=== PATIENT | female | born 1930 | race African-American/Black ===

== ENCOUNTER 2018-05-20 11:08 | Inpatient (IN) | payer MEDICARE, MEDICAID, OTHER ==
[~2018-05-20] VITALS: Ht 165.1 cm; Wt 100.2 kg
[~2018-05-20 11:08] MED LIST: ATEN-42 PO; CELE200C PO; METO-539 PO
[2018-05-20] MEDS ORDERED: ONDANSETRON HCL 4MG/2ML INJ IV STA (11:36)
[2018-05-20] MEDS ORDERED: FAMOTIDINE 20MG/2ML VIAL IV STA (11:36)
[2018-05-20] MEDS ORDERED: SODIUM CHLORIDE 0.9% 1,000 ML IV ONE ×2 (11:36→18:00)
[2018-05-20 12:36] LABS: BASOPHILS % 0.7 % (0.0-2.0); EOSINOPHILS % 5.2 % (0.0-5.0); HEMATOCRIT. 34.9 % (36.0-48.0); HEMOGLOBIN. 11.5 g/dL (12.0-16.0); MEAN CORPUSCULAR HEMOGLOBIN 31.1 pg (28.0-32.0); MEAN CORPUSCULAR VOLUME 94.5 fL (81.0-99.0); MEAN PLATELET VOLUME 7.5 fl (7.4-10.4); MONOCYTES % 5.8 % (2.0-8.0); NEUTROPHILS % 62.3 % (40.0-76.0); PLATELET 286 x1000/uL (130-400); RED BLOOD CELL COUNT 3.69 mill/uL (4.2-5.4); RED CELL DISTRIBUTION WIDTH 13.1 % (11.6-14.6)
[2018-05-20 12:38] LABS: CLARITY URINE TURBID (CLEAR); COLOR URINE YELLOW (YELLOW); KETONES URINE NEGATIVE (NEGATIVE); LEUKOCYTE ESTERASE URINE 3+ (NEGATIVE); NITRITE URINE NEGATIVE (NEGATIVE); OCCULT BLOOD URINE 3+ (NEGATIVE); PROTEIN URINE 2+ (NEGATIVE); SPECIFIC GRAVITY URINE 1.016 (1.005-1.030); UROBILINOGEN URINE 0.2 E.U./dL (0.2-1.0)
[2018-05-20 12:42] LABS: CHLORIDE 104 mEq/L (98-107)
[2018-05-20 12:43] LABS: PROTHROMBIN TIME 10.5 sec (9.1-11.1)
[2018-05-20] MEDS ORDERED: ASPIRIN 81MG TABLET PO ONE (13:15)
[2018-05-20] MEDS ORDERED: ONDANSETRON HCL 4MG/2ML INJ IV ONE (13:30)
[2018-05-20] MEDS ORDERED: CEFTRIAXONE 1 G PREMIX 50 ML IV ONE (14:00)
[2018-05-20] MEDS ORDERED: SODIUM CHLORIDE 0.9% 1,000 ML IV SCH (15:00)
[2018-05-20 16:21] VITALS: BP 120/56
[2018-05-20 16:56] VITALS: BP 125/72
[2018-05-20] MEDS ORDERED: ATENOLOL 50 MG TABLET PO SCH (18:00)
[2018-05-20] MEDS ORDERED: FAMOTIDINE 20MG TABLET PO SCH (18:00)
[2018-05-20] MEDS: DEXT 5%/0.45% NACL 1000ML 1,000 ML IV SCH (18:55)
[2018-05-20] MEDS: ENOXAPARIN 40MG/0.4ML SYR SUBCUT SCH (18:55)
[2018-05-20] MEDS ORDERED: HYDRALAZINE 20MG/ML VIAL IV PRN (19:15)
[2018-05-20] MEDS ORDERED: ONDANSETRON HCL 4MG/2ML INJ IV PRN (19:15)
[2018-05-20] MEDS ORDERED: MORPHINE SULFATE 2 MG/ML CPJ (NOT FOR IM USE) IV PRN (19:15)
[2018-05-20] MEDS ORDERED: MORPHINE SULFATE 4 MG/ML CPJ (NOT FOR IM USE) IV PRN (19:30)
[2018-05-20 20:00] VITALS: BP 110/56
[2018-05-20] MEDS: ATENOLOL 50 MG TABLET PO SCH (21:38)
[2018-05-21] MEDS: DEXT 5%/0.45% NACL 1000ML 1,000 ML IV SCH ×3 (03:25→18:30)
[2018-05-21 04:00] VITALS: BP 121/90
[2018-05-21 08:00] VITALS: BP 122/62
[2018-05-21] MEDS: PANTOPRAZOLE SODIUM 40 MG/VIAL IV SCH (08:37)
[2018-05-21] MEDS: ATENOLOL 50 MG TABLET PO SCH ×3 (08:37→21:54)
[2018-05-21] MEDS: ASPIRIN 81MG TABLET PO SCH (08:38)
[2018-05-21 12:00] VITALS: BP 127/43
[2018-05-21] MEDS ORDERED: LACTULOSE 20G/30ML UDC PO NR (12:30)
[2018-05-21] MEDS: CEFTRIAXONE 1 G PREMIX 50 ML IV SCH (13:35)
[2018-05-21 16:00] VITALS: BP 119/69
[2018-05-21] MEDS: ENOXAPARIN 40MG/0.4ML SYR SUBCUT SCH (18:00)
[2018-05-21 20:00] VITALS: BP 159/52
[2018-05-22] VITALS: BP 117/55
[2018-05-22] MEDS: DEXT 5%/0.45% NACL 1000ML 1,000 ML IV SCH ×3 (02:30→18:30)
[2018-05-22 04:00] VITALS: BP 136/59
[2018-05-22] MEDS: ATENOLOL 50 MG TABLET PO SCH ×2 (09:00→21:00)
[2018-05-22] MEDS: PANTOPRAZOLE SODIUM 40 MG/VIAL IV SCH (09:00)
[2018-05-22] MEDS: ASPIRIN 81MG TABLET PO SCH (09:00)
[2018-05-22] MEDS: CEFTRIAXONE 1 G PREMIX 50 ML IV SCH (14:00)
[2018-05-22] MEDS: ENOXAPARIN 40MG/0.4ML SYR SUBCUT SCH (18:00)
[2018-05-22] MEDS ORDERED: NA PHOS,M-B/NA PHOS,DI-BA ENEMA 118ML PR PRN (19:15)
[2018-05-22] MEDS ORDERED: MAGNESIUM HYDROXIDE 400MG/5ML 30ML UDC PO NR (19:33)
[2018-05-23 00:47] VITALS: BP 125/97
[2018-05-23] MEDS: DEXT 5%/0.45% NACL 1000ML 1,000 ML IV SCH ×3 (02:30→18:30)
[2018-05-23 08:00] VITALS: BP 126/53
[2018-05-23] MEDS: PANTOPRAZOLE SODIUM 40 MG/VIAL IV SCH (08:00)
[2018-05-23] MEDS: ATENOLOL 50 MG TABLET PO SCH ×2 (09:00→22:05)
[2018-05-23] MEDS: ASPIRIN 81MG TABLET PO SCH (09:00)
[2018-05-23] MEDS: CEFTRIAXONE 1 G PREMIX 50 ML IV SCH (14:00)
[2018-05-23 16:22] VITALS: BP 114/45
[2018-05-23] MEDS: ENOXAPARIN 40MG/0.4ML SYR SUBCUT SCH (18:00)
[2018-05-23 20:15] VITALS: BP 128/71
[2018-05-24 08:00] VITALS: BP 121/64
[2018-05-24] MEDS: PANTOPRAZOLE SODIUM 40 MG/VIAL IV SCH (10:15)
[2018-05-24] MEDS: DEXT 5%/0.45% NACL 1000ML 1,000 ML IV SCH ×2 (10:15→10:19)
[2018-05-24] MEDS: ASPIRIN 81MG TABLET PO SCH (10:15)
[2018-05-24] MEDS: ATENOLOL 50 MG TABLET PO SCH (10:17)
[2018-05-24 12:00] VITALS: BP 123/55
[2018-05-24] MEDS: CEFTRIAXONE 1 G PREMIX 50 ML IV SCH (14:00)
[2018-05-24 16:00] VITALS: BP 160/60
[2018-05-24 16:58] VITALS: BP 160/60
== END 2018-05-24 17:30 | disposition home or self-care (01) | DRG 682 ==
LOC: ER 11:38 → 6WST 13:30
PROVIDERS: ADMIT Ophthalmology; ATTEND Ophthalmology
DX: N17.9 Acute kidney failure, unspecified (principal); I50.43 Acute on chronic combined systolic (congestive) and diastolic (congestive) heart failure; N39.0 Urinary tract infection, site not specified; J98.11 Atelectasis; I24.9 Acute ischemic heart disease, unspecified; K52.9 Noninfective gastroenteritis and colitis, unspecified; K82.8 Other specified diseases of gallbladder; K74.60 Unspecified cirrhosis of liver; E86.0 Dehydration; D64.9 Anemia, unspecified; E66.9 Obesity, unspecified; Z68.36 Body mass index [BMI] 36.0-36.9, adult; E66.01 Morbid (severe) obesity due to excess calories; E78.5 Hyperlipidemia, unspecified; K80.80 Other cholelithiasis without obstruction; R07.89 Other chest pain; K21.9 Gastro-esophageal reflux disease without esophagitis; N18.1 Chronic kidney disease, stage 1; K42.9 Umbilical hernia without obstruction or gangrene; Z96.653 Presence of artificial knee joint, bilateral; R80.9 Proteinuria, unspecified; I12.9 Hypertensive chronic kidney disease with stage 1 through stage 4 chronic kidney disease, or unspecified chronic kidney disease; K57.30 Diverticulosis of large intestine without perforation or abscess without bleeding; Z91.19 Patient's noncompliance with other medical treatment and regimen; Z59.0 Homelessness; Z82.49 Family history of ischemic heart disease and other diseases of the circulatory system; Z91.14 Patient's other noncompliance with medication regimen; Z79.899 Other long term (current) drug therapy; K80.20 Calculus of gallbladder without cholecystitis without obstruction
CPT/HCPCS: 36415; 71045; 74176; 76700; 82962; 83880; 84484; 87077; 87186; 93005; 96361; 96365; 96375; 96376; 99285; C9113; J0696; J1650; J2405; J3490; J7030

== ENCOUNTER 2019-01-22 18:28 | Emergency (ER) | payer MEDICARE, MEDICAID ==
[~2019-01-22] VITALS: Ht 160 cm; Wt 70.0 kg
[~2019-01-22 18:28] MED LIST changes: -CELE200C PO; -METO-539 PO
[2019-01-22 19:58] LABS: BASOPHILS % 0.7 % (0.0-2.0); EOSINOPHILS % 4.4 % (0.0-5.0); HEMATOCRIT. 36.5 % (36.0-48.0); HEMOGLOBIN. 12.1 g/dL (12.0-16.0); LYMPHOCYTES % 30.3 % (20.0-50.0); MEAN CORPUSCULAR HEMOGLOBIN 32.3 pg (28.0-32.0); MEAN CORPUSCULAR VOLUME 97.6 fL (81.0-99.0); MEAN PLATELET VOLUME 8.3 fl (7.4-10.4); MONOCYTES % 7.2 % (2.0-8.0); NEUTROPHILS % 57.4 % (40.0-76.0); PLATELET 244 x1000/uL (130-400); RED BLOOD CELL COUNT 3.74 mill/uL (4.2-5.4); RED CELL DISTRIBUTION WIDTH 13.2 % (11.6-14.6)
[2019-01-22 20:21] LABS: CHLORIDE 111 mEq/L (98-107)
[2019-01-22] MEDS ORDERED: ASPIRIN 325MG EC TABLET PO ONE (21:00)
[2019-01-23] MEDS ORDERED: IOHEXOL-350 100 ML BOTTLE ONE (01:22)
[2019-01-23 03:19] VITALS: BP 148/85
== END 2019-01-23 03:19 | disposition short-term general hospital (02) ==
LOC: ER 18:28 → CANBEDREQ 01-23 03:23
DX: R55 Syncope and collapse (principal); R78.89 Finding of other specified substances, not normally found in blood; I10 Essential (primary) hypertension; F32.9 Major depressive disorder, single episode, unspecified
CPT/HCPCS: 36415; 71045; 71275; 80053; 83880; 84484; 85025; 93005; 99285; Q9967